=== PATIENT | female | born 1970 | race African-American/Black ===

== ENCOUNTER 2017-02-04 12:51 | Emergency (ER) | payer BC ==
--- NOTE | ~2017-02-04 | CR72 ---
[facility] A Service of [facility] & [facility] RADIOLOGY TEXT RESULTS PATIENT: AGUILA SRIVASTAVA LOCATION: [facility] : 68 UNIT #: [id number] AGE: [address]: Luke Cornejo MD SEX: F ORDER DR: [id number] [facility] [address] [place], [place] [address] [id number] MR#: [id number] Acc #: [id number] NAME: AGUILA SRIVASTAVA : 1970 SEX: F STUDY DATE/TIME: 02/04/2017 13:44 UNIT: [facility] ROOM: STUDY DESCRIPTION: CR Chest Single View Portable Attending Physician: Luke Cornejo M.D. Ordering Physician: Luke Cornejo M.D. Primary Care Physician: Myke Cloud M.D. MEDICAL IMAGING REPORT This report is preliminary unless electronic signature is present EXAM Portable chest, 02/04/2017. HISTORY Chest pain for 1 week. Benign essential hypertension. Pericarditis. FINDINGS A single AP portable view of the chest shows both lungs to be clear. The heart is normal in size. The mediastinal contour is normal. No significant bone abnormalities are seen. IMPRESSION Normal portable chest. Dictated by... Morris rFegoso M.D. THIS IS AN ELECTRONICALLY VERIFIED REPORT Morris Fregoso M.D. at 02/05/2017 2:13 PM AMINTA/huy TD: 02/04/2017 23:13 JOB #: [id number] MEDICAL IMAGING REPORT Page 1 of 1 COPY
--- NOTE | ~2017-02-04 | EKG ---
PATIENT: AGUILA SRIVASTAVA UNIT #: [id number] Ventricular Rate: 82 BPM Atrial Rate: 82 BPM P-R Interval: 176 ms QRS Duration: 82 ms Q-T Interval: 368 ms QTC Calculation(Bezet): 429 ms P Sewell: 61 degrees Calculated R Sewell: 51 degrees Calculated T Sewell: 56 degrees Diagnosis Line: Normal sinus rhythm Diagnosis Line: Normal ECG Diagnosis Line: When compared with ECG of 25-JUN-2015 06:39, Diagnosis Line: No significant change was found Diagnosis Line: Confirmed by SAMINA BURCIAGA MD ([id number]) on 02/08/2017 Diagnosis Line: 2:47:37 PM INTERPRETING MD: GUALBERTO MCINTYRE
[~2017-02-04 12:51] MED LIST: ALLEGRA PO; ALPRAZOLAM0.5 MG PO; FIBERCON625 MG PO; FLONASE 0.05% N16 GM; INDOMETHACIN25 MG PO; LISINOPRIL10 MG PO; LOVASTATIN20 M1 PO; MEDROL DOSEPAK4 MG PO; MIRALAX17 GM PO; MONTELUKAST SOD10 MG PO; NAPROXEN PO; NEXIUM PO; SINGULAIR PO; VITAMIN D50000 UNIT PO; WELLBUTRIN XL PO; ZYRTEC PO
[2017-02-04 14:17] LABS: POC - CKMB 1.1 ng/mL (0.0-7.9); POC - TROPONIN <0.05 ng/mL (<=0.05)
[2017-02-04 14:19] LABS: ALBUMIN SERUM 4.4 g/dL (3.5-5.0); ALKALINE PHOSPHATASE 68 U/L (32-92); ALT (SGPT) 15 U/L (10-40); AST (SGOT) 20 U/L (10-42); BILIRUBIN, DIRECT <0.1 mg/dL (0.0-0.2); BILIRUBIN,INDIRECT 0.6 mg/dL (0.0-0.9); BILIRUBIN,TOTAL 0.7 mg/dL (0.2-2.0); BLOOD UREA NITROGEN 11 mg/dL (9-23); BUN/CREATININE RATIO 18.33; CALCIUM SERUM 9.4 mg/dL (8.4-10.2); CARBON DIOXIDE 27 mmol/L (22-31); CHLORIDE 103 mmol/L (100-111); CREATININE SERUM 0.6 mg/dL (0.6-1.4); GLOM FILT RATE Estimated 125.8 mL/min (>60); GLUCOSE FASTING 98 mg/dL (70-110); POTASSIUM 4.1 mmol/L (3.5-5.1); PROTEIN TOTAL SERUM 7.5 g/dL (6.0-8.3); SODIUM 136 mmol/L (135-145)
[2017-02-04 14:26] LABS: BASOPHIL% 0.4 % (0-2.5); EOSINOPHIL# 0.1 X10e3 (0-0.7); EOSINOPHIL% 1.3 % (0.0-7.0); HEMATOCRIT 40.1 % (35.0-45.0); HEMOGLOBIN 12.6 gm/dL (12.0-16.0); LYMPHOCYTE# 2.4 X10e3 (1.0-3.5); LYMPHOCYTE% 50.7 % (17.0-45.0); MEAN CELL VOLUME 83.5 FL (83-96); MEAN CORPUSCULAR HEMOGLOBIN 26.3 PG (28-34); MEAN CORPUSCULAR HGB CONC 31.5 g/dL (30-36); MEAN PLATELET VOLUME 8.8 FL (6.5-11.5); MONOCYTE# 0.4 X10e3 (0-1.0); MONOCYTE% 9.4 % (3.0-12.0); NEUTROPHIL# 1.8 X10e3 (1.5-7.1); NEUTROPHIL% 38.2 % (40-75); PLATELET COUNT 237 X10e3 (140-420); RED CELL DISTRIBUTION WIDTH 14.7 % (11.0-15.5); WHITE BLOOD COUNT 4.7 X10e3 (4.0-10.5)
[2017-02-04 14:28] LABS: DIFF IND YES
[2017-02-04 15:43] LABS: ANISOCYTOSIS SL; PLATELET ESTIMATE NORMAL (NORMAL)
[2017-02-04 15:53] LABS: POC - CKMB <1.0 ng/mL (0.0-7.9); POC - TROPONIN <0.05 ng/mL (<=0.05)
== END 2017-02-04 16:16 | disposition home or self-care (01) ==
LOC: CED 12:51
PROVIDERS: Emergency Medicine
DX: R07.89 Other chest pain (principal); E78.5 Hyperlipidemia, unspecified; I10 Essential (primary) hypertension; G43.909 Migraine, unspecified, not intractable, without status migrainosus; Z88.0 Allergy status to penicillin; Z79.899 Other long term (current) drug therapy
CPT/HCPCS: 36415; 71010; 80048; 80076; 82553; 84484; 85025; 93005; 99285